=== PATIENT | male | born 1990 | race African-American/Black ===

== ENCOUNTER 2021-04-01 01:14 | Emergency (ER) | payer OTHER ==
[~2021-04-01] VITALS: Ht 188 cm; Wt 109.0 kg
[2021-04-01 01:39] VITALS: BP 153/77
[2021-04-01] MEDS ORDERED: CEPH500T MT (01:55)
[2021-04-01] MEDS ORDERED: SULF1TAB48 MT (01:55)
== END 2021-04-01 02:08 | disposition home or self-care (01) ==
LOC: ER 01:14
DX: L02.11 Cutaneous abscess of neck (principal)
CPT/HCPCS: 99281